=== PATIENT | female | born 1980 | race Two or more races ===

== ENCOUNTER 2019-03-23 18:33 | Observation (INO) | payer SELFPAY ==
[2019-03-23 19:34] LABS: BILIRUBIN,URINE NEGATIVE (NEG); CLARITY,URINE TURBID; COLOR,URINE YELLOW; NITRITE,URINE NEGATIVE (NEG); PROTEIN,URINE NEGATIVE (NEG-TRACE); UROBILINOGEN,URINE 0.2 mg/dL (0.2 mg/dL)
[2019-03-23 19:46] LABS: SQUAMOUS EPITHELIAL CELL,UR MANY /LPF
[2019-03-23 19:47] LABS: BACTERIA,URINE MANY /HPF (0-FEW); RBC,URINE 0 /HPF (0-2); WBC,URINE 20-40 /HPF (0-4)
[2019-03-23] MEDS ORDERED: IV RINGERS,LACTATED 1000ML 1,000 ML IV ONE (20:00)
[2019-03-23] MEDS ORDERED: ACETAMINOPHEN 500 MG TABLET PO ONE (20:30)
[2019-03-23 20:46] LABS: CALCIUM 8.5 mg/dL (8.5-10.1); CREATININE 0.7 mg/dL (0.6-1.0); GFR 94.7; POTASSIUM 3.3 mmol/L (3.5-5.1)
[2019-03-23 20:54] LABS: ALBUMIN 2.3 g/dL (3.4-5.0); ALBUMIN/GLOBULIN RATIO 0.6 (1.0-1.7); TOTAL BILIRUBIN 0.1 mg/dL (0.2-1.0); TOTAL PROTEIN 6.4 g/dL (6.4-8.2)
== END 2019-03-23 22:20 | disposition home or self-care (01) ==
LOC: 3 SO LND 18:33
PROVIDERS: ADMIT Obstetrics & Gynecology; ATTEND Obstetrics & Gynecology
DX: O62.9 Abnormality of forces of labor, unspecified (principal); Z3A.28 28 weeks gestation of pregnancy
CPT/HCPCS: 36415; 80053; 81001; 87086; G0378; G0379; J7120

== ENCOUNTER 2019-06-03 02:41 | Observation (INO) | payer SELFPAY ==
[~2019-06-03] VITALS: Ht 152.4 cm; Wt 87.5 kg
[2019-06-03] MEDS ORDERED: IV RINGERS,LACTATED 1000ML 1,000 ML IV SCH (03:30)
[2019-06-03 03:36] LABS: BILIRUBIN,URINE NEGATIVE (NEG); CLARITY,URINE CLOUDY; COLOR,URINE YELLOW; NITRITE,URINE NEGATIVE (NEG); PROTEIN,URINE NEGATIVE (NEG-TRACE); UROBILINOGEN,URINE 0.2 mg/dL (0.2 mg/dL)
[2019-06-03 03:44] LABS: SQUAMOUS EPITHELIAL CELL,UR MANY /LPF
[2019-06-03 03:45] LABS: BACTERIA,URINE MANY /HPF (0-FEW); RBC,URINE 0 /HPF (0-2)
[2019-06-03] MEDS ORDERED: ACETAMINOPHEN 500 MG TABLET PO ONE (05:30)
[2019-06-03] MEDS ORDERED: hydrOXYzine 25 MG TABLET PO PRN (05:30)
== END 2019-06-03 05:30 | disposition home or self-care (01) ==
LOC: 3 SO LND 02:41
PROVIDERS: ADMIT Obstetrics & Gynecology; ATTEND Obstetrics & Gynecology
DX: O26.893 Other specified pregnancy related conditions, third trimester (principal); R10.9 Unspecified abdominal pain; Z3A.39 39 weeks gestation of pregnancy
CPT/HCPCS: 81001; 87086; G0378; G0379

== ENCOUNTER 2019-06-11 16:59 | Inpatient (IN) | payer SELFPAY ==
[~2019-06-11] VITALS: Ht 154.9 cm; Wt 87.1 kg
[2019-06-11] MEDS ORDERED: 0.9 % SODIUM CHLORIDE 10 ML DISP.SYRIN. IV PRN (18:15)
[2019-06-11] MEDS ORDERED: LIDOCAINE 1% PF 30 ML VIAL. INJ PRN (18:15)
[2019-06-11] MEDS ORDERED: IBUPROFEN 400 MG TABLET. PO PRN (18:15)
[2019-06-11] MEDS ORDERED: fentaNYL PF VIAL 100 MCG/2 ML VIAL IV PRN (18:15)
[2019-06-11] MEDS ORDERED: OXYTOCIN 30 UNIT/500 ML PREMIX 500 ML IV PRN ×2 (18:15)
[2019-06-11 18:21] VITALS: BP 121/72
[2019-06-11 18:37] LABS: BASO % 0 % (0-3); EOS % 0 % (0-3); HEMATOCRIT 33.3 % (36.0-47.0); HEMOGLOBIN 10.5 g/dL (12.0-15.5); LYMPH % 21 % (24-48); MEAN CORPUSCULAR HEMOGLOBIN 24 pg (25-35); MEAN CORPUSCULAR HGB CONC 32 g/dL (31-37); MEAN CORPUSCULAR VOLUME 77 fL (79-100); MONO # 0.9 x10^3/uL (0.0-1.1); MONO % 10 % (0-9); NEUT # 6.5 x10^3/uL (1.8-7.7); NEUT % 69 % (31-73); PLATELET COUNT 169 x10^3/uL (140-400); RED BLOOD COUNT 4.33 x10^6/uL (3.50-5.40); RED CELL DISTRIBUTION WIDTH 16.4 % (11.5-14.5); WHITE BLOOD COUNT 9.4 x10^3/uL (4.0-11.0)
[2019-06-11 18:53] LABS: BILIRUBIN,URINE NEGATIVE (NEG); CLARITY,URINE CLEAR; COLOR,URINE YELLOW; NITRITE,URINE NEGATIVE (NEG); PROTEIN,URINE NEGATIVE (NEG-TRACE); UROBILINOGEN,URINE 0.2 mg/dL (0.2 mg/dL)
[2019-06-11 18:58] LABS: SQUAMOUS EPITHELIAL CELL,UR MOD /LPF
[2019-06-11 18:59] LABS: BACTERIA,URINE MANY /HPF (0-FEW)
[2019-06-11] MEDS: IV RINGERS,LACTATED 1000ML 1,000 ML IV PRN ×2 (19:00→23:13)
--- NOTE | 2019-06-12 00:08 | PDOC1 ---
OB - History Hx of Present Care: Good Care Ultrasounds: Normal mid trimester US Obstetrical Complications: None Medical Complications: None Past Family/Social History * Past Medical, Surgical, Family and Obstetric Histories reviewed from chart. Rubella: Immune RPR/VDRL: Negative GBS Status: Negative HBsAG: Negative OB - Chief Complaint & HPI Date of Admission: Date of Admission: Jun 11, 2019 at 16:59 Chief Complaint/History : 5 Para: 4 EGA: 40 Reason for admission: active labor Admission Nurse Assessment Rev: Yes OB - Admission Exam Physical Exam Vitals: VS - Last 72 Hours, by Label Date Time Temp Pulse Resp B/P (MAP) Pulse Ox O2 Delivery O2 Flow Rate FiO2 06/11/19 22:09 20 Room Air 06/11/19 18:21 98.1 87 20 121/72 (88) 98.1 HEENT: Normal Heart: Regular Rate Lungs: Clear Abdomen: Gravid, Non tender, Soft Extremities: Edema Reflexes: Normal Cervical Dilatation: 4cm Effacement: 75% Station: -2 Membranes: Intact Heart Rate: Normal Accelerations: Accelerations Present Decelerations: No decelerations Contractions on Admission: < 5 Minutes Apart Intensity: Firm Text A: 40 wks IUP Active labor P: Admit for labor management. JUNI CHAIREZ Jr, MD Jun 12, 2019 00:08
--- NOTE | 2019-06-12 00:09 | PDOC ---
VAGINAL DELIVERY DATE DATE: 06/12/19 TIME: 00:09 : 5 Para: 5 EGA: 40 VAGINAL DELIVERY: VTX VACCUM ASSISTED: No PLACENTA: Spontaneous 9/9 SEX: Male WEIGHT Weight [3790 gm ] Nuchal Cord: No Amniotic Fluid: Clear PAIN: Natural EPISIOTOMY: No EXTENSION: No EBL 300 ml COMPLICATIONS none CONDITION pt. stable Signs of Intrauterine Infectio: None Shoulder Dystocia: No JUNI CHAIREZ Jr, MD Jun 12, 2019 00:09
[2019-06-12] MEDS ORDERED: ACETAMINOPHEN 325 MG TABLET. PO PRN (00:15)
[2019-06-12] MEDS ORDERED: diphenhydrAMINE HCL 25 MG CAPSULE PO PRN (00:15)
[2019-06-12] MEDS ORDERED: MAGNESIUM HYDROXIDE 2,400 MG/30 ML ORAL.SUSP. PO PRN (00:15)
[2019-06-12] MEDS ORDERED: OXYTOCIN 30 UNIT/500 ML PREMIX 500 ML IV PRN (00:15)
[2019-06-12] MEDS ORDERED: MAG HYDROX/ALUMINUM HYD/SIMETH 30 ML ORAL.SUSP PO PRN (00:15)
[2019-06-12] MEDS ORDERED: oxyCODONE/APAP 5/325 1 TAB TABLET PO PRN (00:15)
[2019-06-12] MEDS ORDERED: PHENYLEPH/MINERAL OIL/PETROLAT RECTAL OINTMENT TUBE. RC PRN (00:15)
[2019-06-12] MEDS ORDERED: ZOLPIDEM 5 MG TABLET. PO PRN (00:15)
[2019-06-12] MEDS ORDERED: SIMETHICONE 80 MG TAB.CHEW PO PRN (00:15)
[2019-06-12] MEDS ORDERED: HYDROCORTISONE 1% TOPICAL OINTMENT 30GM TUBE. TP PRN (00:15)
[2019-06-12] MEDS ORDERED: MMR per PROTOCOL. MC PRN (00:15)
[2019-06-12] MEDS ORDERED: BENZOCAINE 20% TOPICAL AEROSOL SPRAY 57GM CAN. TP PRN (00:15)
[2019-06-12] MEDS ORDERED: 0.9 % SODIUM CHLORIDE 10 ML DISP.SYRIN. IV PRN (00:15)
[2019-06-12 03:10] VITALS: BP 108/60
[2019-06-12 07:46] VITALS: BP 115/55
[2019-06-12] MEDS: IBUPROFEN 400 MG TABLET. PO PRN ×2 (08:11→18:14)
[2019-06-12] MEDS: DOCUSATE SODIUM 100 MG CAPSULE. PO PRN ×2 (08:11→18:13)
[2019-06-12 12:07] VITALS: BP 106/61
[2019-06-12 16:15] VITALS: BP 114/62
[2019-06-12 21:51] VITALS: BP 111/48
[2019-06-13 05:44] VITALS: BP 105/48
[2019-06-13 06:54] LABS: BASO # 0.1 x10^3/uL (0.0-0.2); BASO % 1 % (0-3); EOS # 0.1 x10^3/uL (0.0-0.7); EOS % 1 % (0-3); HEMATOCRIT 28.7 % (36.0-47.0); HEMOGLOBIN 9.2 g/dL (12.0-15.5); LYMPH # 3.1 x10^3/uL (1.0-4.8); LYMPH % 28 % (24-48); MEAN CORPUSCULAR HEMOGLOBIN 25 pg (25-35); MEAN CORPUSCULAR HGB CONC 32 g/dL (31-37); MEAN CORPUSCULAR VOLUME 77 fL (79-100); MONO # 1.1 x10^3/uL (0.0-1.1); MONO % 10 % (0-9); NEUT # 6.6 x10^3/uL (1.8-7.7); NEUT % 61 % (31-73); PLATELET COUNT 153 x10^3/uL (140-400); RED BLOOD COUNT 3.72 x10^6/uL (3.50-5.40); RED CELL DISTRIBUTION WIDTH 16.7 % (11.5-14.5); WHITE BLOOD COUNT 10.9 x10^3/uL (4.0-11.0)
[2019-06-13] MEDS ORDERED: FERROUS SULFATE 325 MG TABLET. PO SCH (08:00)
--- NOTE | 2019-06-13 08:26 | PDOC3 ---
OB DISCHARGE SUMMARY DATE OF ADMISSION: 06/11/19 DATE OF DISCHARGE: 06/13/19 REASON FOR ADMISSION: Onset of labor INTRAPARTUM PROCEDURES: Spontanous Vag Deliv DISCHARGE DIAGNOSIS: Term Delivered DISCHARGE INFORMATION: Activity (ad sweetie), Diet (regular), Instructions (pelvic rest x 6 wks) HOSPITAL COURSE Term gestation delivered vaginally without complications. JUNI CHAIREZ Jr, MD Jun 13, 2019 08:26
[2019-06-13] MEDS ORDERED: IBUP-1027 PO (08:28)
--- NOTE | 2019-06-13 08:28 | DISCH ---
DISCHARGE INSTRUCTIONS Condition on Discharge Condition on Discharge: Stable Activity After Discharge Activity Instructions for Disc: Activity as tolerated Lifting Instructions after Dis: No heavy lifting Driving Instructions after Dis: Do not drive today Diet after Discharge Diet after Discharge: Regular Contacting the DRWayne after DC Call your doctor for: If your condition worsens Follow-Up Follow up with: Christopher in 6 wks JUNI CHAIREZ Jr, MD Jun 13, 2019 08:28
[2019-06-13 10:28] VITALS: BP 110/58
--- NOTE | 2019-06-13 10:29 | NUR ---
went over home instrructions on pt with mother states understands and no questions on home care to see dr haque in 6 weeks for f/u appt.
== END 2019-06-13 11:13 | disposition home or self-care (01) | DRG 807 ==
LOC: 3 SO LND 16:59 → OBSVTOIN 16:59 → 3 SO LND 06-12 02:20
PROVIDERS: ADMIT Obstetrics & Gynecology; ATTEND Obstetrics & Gynecology
PROC: 10E0XZZ Delivery of Products of Conception, External Approach (ICD-10-PCS; principal; 2019-06-12)
DX: O80 Encounter for full-term uncomplicated delivery (principal); Z37.0 Single live birth; Z3A.40 40 weeks gestation of pregnancy
CPT/HCPCS: 36415; 81001; 85025; 86592; 86703; 86762; 86850; 86900; 86901; 87086; 87186; 87340; J2590; J3010; J7120; G0378